=== PATIENT | female | born 1960 | race Caucasian/White ===

== ENCOUNTER 2021-12-08 15:37 | Outpatient (REF) | payer MEDICAID, SELFPAY ==
--- NOTE | 2021-12-08 15:00 | SKI_PTH ---
PATIENT: Laura Mar LOC: [facility] U#:[id number] AGE/SX: 61/F ROOM: RE12/08/[address]: Everardo Hathaway MD : 1960 BED: DIS: 12/08/2021 SPEC #: [id number] RECD: 12/09/21 12:01 STATUS: TITA RELeslie #: [id number] VANESSA: 12/08/21 15:[address]: Everardo Hathaway DEPT: Surgical Specimen RECD BY: Kena Fleming ENTERED: 12/09/21 12:02 SP TYPE: ROBERT HAYS DR: Libby Barahona Tissues: 1 - SKIN BIOPSY(SHAVE/PUNCH) Procedures: SKIN LEVEL 4 Comments: [id number]
== END 2021-12-08 15:38 | disposition home or self-care (01) ==
LOC: LBN 15:37
PROVIDERS: PCP Physician Assistant Medical; Visit Provider Otolaryngology
DX: C44.319 Basal cell carcinoma of skin of other parts of face (principal)
CPT/HCPCS: 88305

== ENCOUNTER 2022-02-08 10:11 | Outpatient (REF) | payer MEDICAID, SELFPAY ==
--- NOTE | 2022-02-08 09:45 | SKI_PTH ---
PATIENT: Laura Mar LOC: [facility] U#:[id number] AGE/SX: 61/F ROOM: RE02/08/[address]: Everardo Hathaway MD : 1960 BED: DIS: 02/08/2022 SPEC #: [id number] RECD: 02/08/22 16:00 STATUS: TITA REQ #: [id number] VANESSA: 02/08/22 09:[address]: Everardo Hathaway DEPT: Surgical Specimen RECD BY: Kena Fleming ENTERED: 02/08/22 16:01 SP TYPE: ROBERT HAYS DR: Libby Barahona Tissues: 1 - SKIN BIOPSY(SHAVE/PUNCH) Procedures: SKIN LEVEL 4 Comments: [id number]
== END 2022-02-08 10:12 | disposition home or self-care (01) ==
LOC: LBN 10:11
PROVIDERS: PCP Physician Assistant Medical; Visit Provider Otolaryngology
DX: C44.319 Basal cell carcinoma of skin of other parts of face (principal)
CPT/HCPCS: 88305

== ENCOUNTER → 2023-08-08 02:14 | Outpatient (CLI) | payer MEDICAID, SELFPAY ==
--- NOTE | 2023-08-08 | DI.RAD_ITS ---
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 TECHNIQUE: 2D digital imaging was performed. COMPARISON: CR ORTHO KNEE LEFT 4+VIEWS from 01/21/2018 FINDINGS: 3 views There is no evidence of fracture but there is a joint effusion, best seen on the lateral view. There is [id number] narrowing of the lateral compartment which has progressed since 2018. There also in creased size marginal osteophytes off the lateral compartment. Also marginal osteophytes off the med ial compartment but without significant narrowing of the medial compartment on the weight-bearing vie w. There are also significant degenerative changes in the patellofemoral compartment. No concerning osseous lesions. Calcific density seen behind the distal metaphysis of the femur now e vident, not previously seen on images of January 2018 and therefore does not represent a fabella but eit her represents a loose body or bony excrescence related to degenerative change. This is not separate d from the adjacent posterior femur at this level. IMPRESSION: As above. Significant progression of degenerative changes in the left knee when compared to 2018. DATA REPOSITORY: RADIATION DOSE DELIVERED:
== END ==
PROVIDERS: PCP Physician Assistant Medical; Visit Provider Physician Assistant Medical
DX: M17.12 Unilateral primary osteoarthritis, left knee (principal); M22.42 Chondromalacia patellae, left knee; M25.462 Effusion, left knee
CPT/HCPCS: 73562

== ENCOUNTER 2023-09-20 15:35 | Outpatient (CLI) | payer MEDICAID, SELFPAY ==
--- NOTE | 2023-09-20 11:00 | DI.RAD_ITS ---
Exam(s) XR STANDING ALIGNMENT EXAM: XR STANDING ALIGNMENT CLINICAL HISTORY: LEFT KNEE PAIN. TECHNIQUE: 2D digital imaging was performed. COMPARISON: CR ORTHO KNEE LEFT 4+VIEWS from 01/21/2018 CR XR KNEE LT 3V AP,LAT,KIMBER from 08/08/2023 FINDINGS: 3 views Again noted is moderate-advanced narrowing of the lateral compartment of the left knee. There is inc reased size of the marginal osteophyte off the outer aspect of the lateral tibial plateau when compar ed to 2018. The medial compartment of the left knee continues to exhibit normal height. No signific ant degenerative changes in the opposite-right knee. Mild narrowing of the hip joint spaces. Left a nkle unremarkable. Fusion hardware in the right ankle tibiotalar joint. IMPRESSION: Left knee findings as above with mild further degenerative progression from 2018. DATA REPOSITORY: RADIATION DOSE DELIVERED:
--- NOTE | 2023-09-20 11:00 | DI.RAD_ITS ---
Exam(s) XR KNEE LT 1V EXAM: XR KNEE LT 1V CLINICAL HISTORY: LEFT KNEE PAIN. TECHNIQUE: 2D digital imaging was performed. COMPARISON: CR XR KNEE LT 3V AP,LAT,KIMBER from 08/08/2023 FINDINGS: Single lateral view of the left knee. Significant degenerative changes evident including the patellofemoral compartment. There is a joint effusion noted. IMPRESSION: Significant degenerative changes DATA REPOSITORY: RADIATION DOSE DELIVERED:
== END 2023-09-20 15:36 | disposition home or self-care (01) ==
LOC: DIORS 15:35
PROVIDERS: PCP Physician Assistant Medical; Visit Provider Student in an Organized Health Care Education/Training Program
DX: M17.12 Unilateral primary osteoarthritis, left knee (principal)
CPT/HCPCS: 73560; 77073

== ENCOUNTER 2023-10-05 02:10 | Outpatient (CLI) | payer MEDICAID, SELFPAY ==
[2023-10-05 10:44] LABS: HCT 36.9 % (36.0-46.0); HGB 12.7 g/dL (11.2-15.7); MCH 33.2 pg (27.0-33.0); MCHC 34.4 % (32.0-36.0); MCV 96 fL (80-95); MPV 9.5 fL (8.0-11.0); Platelet Count 303 10^3/uL (130-400); RBC 3.83 10^6/uL (3.93-5.22); RDW 12.7 % (11.7-14.6); WBC 6.16 10^3/uL (4.4-10.8)
[2023-10-05 11:06] LABS: Anion Gap 10.7 mmol/L (3-11); BUN 23 mg/dL (7-18); CO2 26.3 mmol/L (21.0-32.0); CREATININE 0.7 mg/dL (0.55-1.02); Calcium 9.2 mg/dL (8.5-10.1); Chloride 103 mmol/L (98-107); Estimated GFR 98.34 (mL/min/1.73m2); Glucose 97 mg/dL (74-106); Potassium 4.3 mmol/L (3.5-5.1); Sodium 140 mmol/L (136-145)
== END 2023-10-05 02:11 | disposition home or self-care (01) ==
LOC: LBO 02:10
PROVIDERS: PCP Physician Assistant Medical; Visit Provider Student in an Organized Health Care Education/Training Program
DX: M17.12 Unilateral primary osteoarthritis, left knee (principal); Z01.818 Encounter for other preprocedural examination
CPT/HCPCS: 36415; 80048; 85027

== ENCOUNTER 2023-10-17 07:13 | Day surgery (SDC) | payer MEDICAID, SELFPAY ==
[2023-10-17] VITALS (14 sets, daily range): BP systolic 145–188; BP diastolic 79–124; PULSE 70–89; RESP 9–16; TEMP 36–36.6; O2SAT 95–99; BMI 26.5
--- NOTE | 2023-10-17 07:25 | PDOC.DSDIS_ITS ---
Date of service: 10/17/23 Time of Service: 07:25 Discharge Plan Disposition Patient Disposition: Home Condition: Good Discharge Details Reason For Visit: L TKR Attending Provider: Eduard Astorga Primary Care Provider: Libby Barahona Home Meds and New Rx's Prescriptions: New acetaminophen 500 mg tablet 1,000 mg PO TID Qty: 90 3RF aspirin 81 mg tablet,delayed release (DR/EC) 81 mg PO BID Qty: 60 0RF celecoxib 200 mg capsule 200 mg PO BID Qty: 60 0RF dexamethasone 4 mg tablet 4 mg PO DAILY Qty: 2 0RF oxycodone 5 mg tablet 5 mg PO Q4H MDD 6 tabs PRN (Reason: pain) Qty: 20 0RF Continued amitriptyline 25 mg tablet 25 mg PO QHS doxepin 50 mg capsule 50 mg PO QHS multivitamin Tablet 1 tab PO DAILY venlafaxine 150 mg capsule,extended release 24hr 150 mg PO DAILY venlafaxine 75 mg capsule,extended release 24hr 75 mg PO DAILY gabapentin 300 mg capsule 300 mg PO DAILY omeprazole 20 mg capsule,delayed release(DR/EC) 20 mg PO DAILY Discharge Instructions Additional Instructions: Total Knee Discharge Instructions Activity: The most important activity is to walk and to work on gentle motion (both flexion and extension). You should try to take short walks a few times a day. It is important that when resting you work on keeping the knee straight. Avoid putting a pillow behind the knee as this will encourage flexion. Work on range of motion exercises as provided by Physical Therapy. - Start outpatient physical therapy within 2 weeks. - You should wear the DINA hose on both legs for 2 weeks. You may remove these at night. You may also use any compression sock in place of the DINA hose. - Utilize [employer] to review exercises, see videos on exercises and obtain basic information pertaining to your surgery and your recovery. Dressing: Remove the Sanford wrap by 2 days after your surgery and put on the DINA stocking given to you from the hospital. Keep the surgical dressing (underneath the SANF[place] wrap) in place for at least one week. After the first week it may be removed and replaced with light gauze and tape or nothing. The wound and dressing may get wet after 3 days but avoid soaking the dressing or otherwise it will need to be changed. Many people prefer covering the dressing with cling wrap (saran wrap) to minimize it from getting soaked. If it gets wet, just pat dry. If it starts to peel off then it will need to be changed. Medications: - You should take Tylenol and anti-inflammatory Celebrex as your primary pain control medications. If the Celebrex is too expensive or not covered, please call the office for another alternative (Advil/Ibuprofen or Naproxen/Aleve) - You have been prescribed a stronger pain medication Oxycodone for breakthrough pain, take as needed as prescribed. - You will continue your omeprazole to help reduce stomach acid and reflux. - You will be taking Aspirin 81mg twice a day for DVT prevention unless instructed otherwise. - You have also been prescribed Decadron to take to control post-operative nausea and pain. You will start this tomorrow. - If you have constipation you should take Colace or Miralax (both [id number]). It takes most people 3-4 days to have a bowel movement. Follow-up: 2 weeks If you have any acute concerns or questions, please do not hesitate to contact the office at [phone]. You may contact Dr. Astorga with any questions after hours through the hospital at [phone] or on his cell phone at [phone]. Referrals: Eduard Astorga MD [ [facility] STAFF PHYSICIAN] - Equipment/Supplies: Walker Activity:: Activity as Tolerated Shower/Bathe:: 72 hours Diet:: As Tolerated DS: Diagnosis Discharge Diagnosis (1) Left knee DJD: Status: Chronic
[2023-10-17] MEDS: Gabapentin 300 MG CAP PO (07:49)
[2023-10-17] MEDS: Acetaminophen 500 MG TAB 1000 MG PO (07:49)
[2023-10-17] MEDS: Celecoxib 200 MG CAP 400 MG PO (07:50)
--- NOTE | 2023-10-17 07:50 | ANES.PREOP_ITS ---
General Info Date of Service Date Performed: 10/17/23 Height: 5 ft 3 in Weight: 68 kg Body Mass Index (BMI): 26.5 Surgical Procedure: Operation Date: 10/17/23 09:25 Proposed Procedure Side Surgeon p Knee Total Arthroplasty w/OrthAlign, Cementless CR Left Eduard Astorga MD Meds Allergies and Home Medications Allergies Allergy/AdvReac Type Severity Reaction Status Date / Time No Known Allergies Allergy Verified 10/17/23 07:39 Home Medication Medication Instructions Recorded amitriptyline 25 mg tablet 25 mg PO QHS 12/07/21 doxepin 50 mg capsule 50 mg PO QHS 12/07/21 multivitamin 1 tab PO DAILY 12/07/21 venlafaxine 150 mg 150 mg PO DAILY 12/07/21 capsule,extended release 24 hr venlafaxine 75 mg capsule,extended 75 mg PO DAILY 12/07/21 release 24 hr gabapentin 300 mg capsule 300 mg PO DAILY 07/31/23 omeprazole 20 mg capsule,delayed 20 mg PO DAILY 07/31/23 release acetaminophen 500 mg tablet 1,000 mg (2 x 500 mg) PO TID #90 10/17/23 tabs aspirin 81 mg tablet,delayed 81 mg PO BID #60 tabs 10/17/23 release celecoxib 200 mg capsule 200 mg PO BID #60 caps 10/17/23 dexamethasone 4 mg tablet 4 mg PO DAILY #2 tabs 10/17/23 oxycodone 5 mg tablet 5 mg PO Q4H PRN pain #20 tabs 10/17/23 Current Visit Medications: Current Medications Generic Name Dose Route Start Last Admin Trade Name Freq PRN Reason Stop Dose Admin Acetaminophen 1,000 mg 10/17/23 06:00 10/17/23 07:49 Acetaminophen 500 Mg Tab PO 10/17/23 16:00 1,000 mg PREOP CARITO Administration Acetaminophen 1,000 mg 10/17/23 07:24 Acetaminophen 500 Mg Tab PO 11/16/23 07:23 TID PRN PRN Analgesia Celecoxib 400 mg 10/17/23 06:00 10/17/23 07:50 Celecoxib 200 Mg Cap PO 10/17/23 16:00 400 mg PREOP CARITO Administration Docusate Sodium 100 mg 10/17/23 07:24 Docusate Sodium 100 Mg Cap PO 11/16/23 07:23 BID PRN PRN Constipation Gabapentin 300 mg 10/17/23 06:00 10/17/23 07:49 Gabapentin 300 Mg Cap PO 10/17/23 16:00 300 mg PREOP CARITO Administration Tranexamic Acid 1,000 mg/ 60 mls @ 360 mls/hr 10/17/23 06:00 Sodium Chloride IVPB 10/17/23 16:00 PREOP CARITO Ringer's Solution 1,000 mls @ 80 mls/hr 10/17/23 06:00 IV 10/17/23 23:59 INFUSION CARITO Cefazolin Sodium/Dextrose 2 gm in 50 mls @ 100 mls/hr 10/17/23 06:00 Ancef Duplex IVPB 10/17/23 23:59 PREOP CARITO IV Miscellaneous Supplies 1 each 10/17/23 06:00 Iv Access IV 10/17/23 23:59 DIRECTED CARITO Ondansetron HCl 4 mg 10/17/23 07:24 Ondansetron 4 Mg/2 Ml Vial IVP 11/16/23 07:23 Q6H PRN PRN Nausea Oxycodone HCl 0 mg 10/17/23 07:24 Oxycodone 5 Mg Tab PO 11/16/23 07:23 Q3H PRN PRN Pain Polyethylene Glycol 17 gm 10/17/23 07:24 Polyethylene Glycol 3350 17 Gm Packet PO 11/16/23 07:23 BID PRN PRN Constipation Sodium Chloride 0 ml 10/17/23 06:00 Normal Saline Flush 10 Ml Syr IV 10/17/23 23:59 PRN PRN Sodium Chloride 0 ml 10/17/23 06:00 Normal Saline 10 Ml Vial IJ 10/17/23 23:59 DIRECTED PRN Sterile Water 0 ml 10/17/23 06:00 Water,Injection,Sterile 10 Ml Vial IJ 10/17/23 23:59 DIRECTED PRN PFSH Active Problems Active Problems: Problem Status Onset Code Left knee DJD M17.12 Basal cell carcinoma, face C44.310 Medical History Medical History Sepsis Anxiety Skin lesion of face Disorder of skin and subcutaneous tissue Hidradenitis suppurativa Depressive disorder Pain in left knee Menopausal and postmenopausal disorder Gastroduodenitis Asthma Persistent insomnia Alcohol abuse Derangement of meniscus Tobacco user quit ~3 months Ludwigs angina Chronic pain syndrome Skin lesion Surgical History Surgical History Dental abscess From dental decay over 3 years ago Invasive surgery in [place] to remove teeth and had drains placed - scars on neck from drain placement H/O tubal ligation 1984 History of orthopedic surgery multiple surgeries on right ankle Tobacco Smoking/Tobacco Use Status: Former Tobacco Use Alcohol Alcohol Intake: current Alcohol intake frequency: a few times a month Alcohol type: beer Substance Use Substance use: Occasionally Substance use type: marijuana Vital Signs and Lab Results Vital Signs Most Recent Vital Signs in EMR: Most Recent Vital Signs Temp Pulse Resp BP Pulse Ox 36.2 C L 89 16 188/91 H 99 10/17/23 07:19 10/17/23 07:19 10/17/23 07:19 10/17/23 07:19 10/17/23 07:19 Lab Results Blood Type / Crossmatch: No Data to Display Complete Blood Count: White Blood Count 6.16 10^3/uL (4.4-10.8) 10/05/23 10:32 Red Blood Count 3.83 10^6/uL (3.93-5.22) L 10/05/23 10:32 Hemoglobin 12.7 g/dL (11.2-15.7) 10/05/23 10:32 Hematocrit 36.9 % (36.0-46.0) 10/05/23 10:32 Platelet Count 303 10^3/uL (130-400) 10/05/23 10:32 Complete Metabolic Panel: Sodium 140 mmol/L (136-145) 10/05/23 10:32 Potassium 4.3 mmol/L (3.5-5.1) 10/05/23 10:32 Chloride 103 mmol/L (98-107) 10/05/23 10:32 Carbon Dioxide 26.3 mmol/L (21.0-32.0) 10/05/23 10:32 BUN 23 mg/dL (7-18) H 10/05/23 10:32 Creatinine 0.7 mg/dL (0.55-1.02) 10/05/23 10:32 Est GFR (CKD-EPI 2020) 98.34 (mL/min/1.73m2) 10/05/23 10:32 Calcium 9.2 mg/dL (8.5-10.1) 10/05/23 10:32 Glucose 97 mg/dL (74-106) 10/05/23 10:32 Liver Function Panel: No Data to Display Coagulation Panel: No Data to Display Cardiac Panel: No Data to Display Arterial Blood Gas: No Data to Display Venous Blood Gas: No Data to Display Pancreas Panel: No Data to Display Thyroid Panel: No Data to Display Infectious Disease: No Data to Display Blood Cultures: No Data to Display Toxicology Panel: No Data to Display Anesthesia Assessment and Plan Anesthesia History Personal History: No History of Anesthesia Complications Family History: No Family History of Anesthesia Complications Exercise Tolerance Exercise Tolerance: Metabolic Equivalents>4 Pertinent Negatives Pertinent Negatives: No Symptoms of GERD Cardiac & Pulmonary Exam Cardiac Exam: Normal S1/S2 Heart Sounds Pulmonary Exam: Clear Bilateral Breath Sounds Implantable Cardiac Device Does patient have a Pacemaker or an ICD?: No Airway Exam Known Difficult Airway: No Mallampati Class: 2 Mouth Opening: Normal (> 3cm) Thyromental Distance: Greater than 3 cm Neck Range of Motion: Full ROM Neck Circumference: Normal Teeth Condition: Normal Dentition ASA Classification ASA Score: ASA 2 Emergency Case?: No NPO Status NPO Status: NPO Clears >2 hours, Solids >8 hours Anesthesia Plan Resuscitation Status: Full Code Anesthesia Technique: Spinal Anesthesia Airway Planned: Natural Airway Monitors Used: Standard Monitors
[2023-10-17] MEDS: Lactated Ringers 1,000 ML 80 ML IV (08:04)
--- NOTE | 2023-10-17 08:42 | W.ANESNERVE ---
Nerve Block Single Injection Procedure Date and Time Date Performed: 10/17/23 Procedure Start: 08:26 Location Where Procedure Performed Procedure Location: Day Surgery Unit Reason Performed: Postoperative Analgesia Requesting Provider: Eduard Astorga Timeout Performed Timeout Performed: Yes Monitoring Used ECG, Blood Pressure, SpO2, ETCO2 and See EMR for corresponding vital signs Sterility Sterility: Hand Hygiene, Surgical Cap, Surgical Mask, Sterile Gloves, Eye Protection and Chlorhexidine Sedation Given During Procedure Sedation Given (Indicate Dose Given): Versed IV Dose:: 3mg IVP Patient Mental Status Patient Mental Status: Sedate with meaningful communication Nerve Block 1st Nerve Block: Laterality: Left Block Type: Adductor Canal Ultrasound Image Saved?: Yes Needle / Catheter Used: 100mm SonoPlex II Local Anesthetic Bolus (Indicate Dose Given): Lidocaine used for local infiltration of skin and Ropivacaine 0.5% Dose:: 0.5%/20cc (100mg) Additives (Indicate Dose Given): Epinephrine to make 1:200,000 (5mcg/ml) Dose:: 100mcg (1:200,00) and Decadron Dose:: 10mg PF Ultrasound: Sterile probe cover and gel used Nerve Stimulator: Not Used Paresthesia: None Procedure Tolerated: No Complications and Patient tolerated well Procedure Outcome: Successful Performed By: Ji Araujo
[2023-10-17] MEDS: ceFAZolin 2 GM/50 ML BAG IVPB (08:48)
--- NOTE | 2023-10-17 10:14 | ROE_ITS ---
Date of service: 10/17/23 Time of Service: 09:05 Operative Note Operative Note DATE OF PROCEDURE: 10/17/23 PRE-OP DIAGNOSIS: Left Knee Osteoarthritis with Valgus Deformity POST-OP DIAGNOSIS: same PROCEDURE: Left Total Knee Replacement with Intraoperative Navigation SURGEON: Eduard Astorga CARDIAC CATH LAB TECHNOLOGIST: Maureen Weiner ANESTHESIA TYPE: Spinal Refer to Anesthesia Record ESTIMATED BLOOD LOSS: 100 PATHOLOGY: none sent TOURNIQUET TIME: 0 COMPLICATIONS: None Patient was transported to: PACU Patient's condition: stable Implants: 1. Depuy Attune Cementless Cruciate Retaining Femoral Component, Size 5 2. Depuy Attune Cementless Fixed Bearing Tibial Component, Size 5 3. Depuy Attune 5x7 CR/FB Poly 4. Depuy Attune Patellar Component, Size 35 Indications: I have seen Laura in clinic for symptoms of LEFT knee arthritis, confirmed with radiographic findings. Laura has exhausted nonoperative methods and was having significant limitations in daily function and desired better function and less pain. I discussed the technical details of a knee replacement. I explained the risks of the procedure to include, but not limited to, bleeding, infection, pain, stiffness, fracture, damage to nerves and vessels, damage to muscles and tendons, loosening, need for repeat procedure, blood clot and cardiopulmonary demise. Despite these risks, she elected to proceed. Findings: There was significant signs of arthritis throughout the knee involving all 3 compartments but worse on the lateral side. Procedure Description: Laura was greeted in the preoperative holding area where the correct side was identified and marked. The consent was reviewed with the patient and signed. The history and physical was updated. All questions were answered. Preoperativ e mediacations were administered: Acetaminophen 1000mg, Celebrex 400mg, and Gabapentin 300mg. An adductor canal block was then administered by the anesthesia team in the DSU. Laura was taken back to the operating room. A spinal anesthestic was then administered. The patient was placed into the supine position on the operating room table. A nonsterile tourniquet was placed high onto the leg. Posts were placed for positioning during the procedure. All bony prominences were well padded. Prophylactic antibiotics in the form of Cefazolin were administered. 1g of Tranxemic Acid was given intravenously within 30 minutes of incision. The left leg was then prepped with Chloraprep and draped in a standard fashion with impervious stockinette. A second prep with Chloraprep was performed prior to application of Iodine impregnated skin protection. A timeout to confirm correct identity, side and site, procedure, allergies, anesthesia, and medical concerns was performed. With the knee in some flexion, a midline incision was made overlying the knee. Full thickness skin flaps were raised once the extensor mechanism was encountered. These were raised medially and laterally. Any bleeding was controlled with electrocautery. Once the extensor mechanism was fully exposed, a medial parapatellar arthrotomy was performed in a flexed position. All bleeding from the arthrotomy and the geniculate arteries was coagulated. A medial subperiosteal peel was performed with electrocautery to the midcoronal plane. The fat pad was removed while keeping the patellar tendon protected. The anterior distal femur synovium was removed for later visualization. The ACL and PCL were resected and the anterior horn of the lateral meniscus was transected. The knee was then flexed with the patella everted. Large osteophytes from the tibia were removed. Large osteophytes from the femur were removed. A single starting pin was then placed 1cm anterior to the PCL insertion and the notch in the direction of the femoral head. The OrthoAlign device was applied over the pin. It was oriented to be in line with the epicondylar axis and the trochlear groove. It was then pinned into place. The navigation computer was then turned on and calibrated. The distal femur cut was set at 0 degrees varus and 3.5 degrees flexion. The distal femur cutting guide then was positioned for a 9mm cut. The distal femur was cut with an oscillating saw while protecting the soft tissues. The tibia was then addressed. The OrthoAlign device was placed over the tibial tubercle and medial tibia and secured into position. Once again, OrthoAlign was calibrated and then set for a 1.5 degree varus cut and 5.5 degrees of posterior slope. With this locked into position, the cut thickness stylus was used to assess cut thickness. The lateral side, most involved side, was set for a 6mm cut, which corresponded to 9mm medially. This was then held in position and pinned into place with 2 additional pins and a cross pin for stability. The medial and lateral collateral ligaments were protected and the cut was performed. With this completed, it was assessed and noted to be of appropriate dimensions. The guide and OrthoAlign was removed. A spacer block was inserted and the knee was brought into extension to ensure enough space was present. . The Orthoalign gap balancing device was then placed in extension. This was used to ensure that the ligaments were properly balanced with up to 2 to 3 mm laxity laterally compared medially. The extension gap was measured as 18mm. The knee was then brought into 90 degrees of flexion and the ligament temporary administrative assistant was once again placed. Under the same amount of force the flexion gap was measured. The Attune specific jig was placed and the flexion gap was made to match the extension gap. The femur was then sized as a size 5. The 4-in-1 cutting guide was the placed. An lizy wing was used to confirm appropriate position of the anterior cut to a void notching. This cutting guide was ensured to be flush on the cut surface and then pinned into place with headed pins. While protecting the soft tissues, quad tendon, and collateral ligaments, the anterior and posterior cuts were performed with a saw. The central two pins were removed and the posterior and anterior chamfers were cut next. The notch-cutting guide was placed. This was pinned to lateralize the femoral component as much as possible while keeping it flush on the cut surface. This was then pinned into position. A saw was used to make the notch cut. A rasp smoothed the cut surfaces. The medial and lateral menisci were removed. A trial femoral component was then inserted, impacted down to the cut surfaces, and the lug holes were drilled. A provisional trial tibial component was placed and the knee was brought through range of motion. The polyethylene was trialed until there was good flexion and extension with excellent stability to the medial and lateral collaterals. The patella was tracking without thumbs. A size 7mm polyethylene component provided the best range of motion and stability with less than 2mm gapping with medial and lateral stress and full extension without significant hyperextension. The tibial cut surface was fully exposed. The tibia was then sized as a 5. The tibia had been previously marked during trialing to correspond to the center of the tibial component to help with rotation. The trial was aligned to this maureen, approximately rotated to the medial 1/3rd of the tibial tubercle. The trial was pinned into place. The tibia was prepared with a reamer and a keel punch and lug holes. The knee was then brought into extension and the patella was measured as 26mm. Using the patellar clamp and cut guide, this was resected to a flat surface with at least 13mm of thickness remaining. The size 35 patella fit the best. This was oriented and then clamped into position. The lugs were drilled. The trial components were removed. The final components were opened on the back table. The periosteal and capsular tissues, especially posteriorly, around the knee were then systematically injected with a periarticular cocktail consisting of 246mg of Ropivacaine, 0.5mg of Epinephrine, 0.08mg of Clonidine, and 30mg of Ketorolac, diluted to 100cc. On the back table, with the implants opened, the cement was mixed. One batch of high viscosity cement was prepared with vacuum assistance. After the cement was ready a small amount was placed on the cut surface of the patella and the patellar button was clamped into position and held. While the cement was hardening, the cementless knee components were placed. Starting with the tibial component, the tibia was subluxed anteriorly and the lug holes of the component were lined up. The tibia was then impacted with an impactor and mallet until the tibial component was in contact with the tibia. Then, the femoral component was inserted. The lug holes were aligned and the component was impacted into position. The final polyethylene component was inserted. The knee was irrigated with Irrisept Chlorhexadine solution. This was allowed to sit in the knee for 3 minutes and then it was thoroughly irrigated out with saline. After the cement had finally cured, approximately 15min, the clamp was removed from the patella and the knee was taken through range of motion. The patella was tracking with a no-thumbs technique. The capsule was then reapproximated with a No. 1 Vicryl at multiple locations. The capsule was finally closed with a No. 2 Stratafix, barbed suture. Deep tissues were then reapproximated with 0 Vicryl and 2-0 Vicryl. The skin was closed with a running 3-0 Monocryl in a subcuticular fashion. This was reinforced with skin glue. A Mepilex silver dressing was applied along with a [id number] ROOSEVELT wrap. A CryoCuff was applied. Laura was transferred to the hospital bed without difficulty an suffering no apparent complication. Laura has a good prognosis. Physical therapy will start today and without restrictions, weight-bearing as tolerated. Aspirin 81mg BID will be used for DVT prophylaxis.
[2023-10-17] MEDS: Normal Saline 10 ML VIAL IJ (10:51)
[2023-10-17] MEDS: HYDROmorphone 2 MG/ML SYR IVP ×3 (10:51→11:26)
--- NOTE | 2023-10-17 12:19 | W.ANESPOSTOP ---
Postoperative Evaluation Date, Time and Location Date Performed: 10/17/23 Time Performed: 12:20 Patient Location: Day Surgery Unit Vital Signs Most Recent Imported Vital Signs: Most Recent Vital Signs Temp Pulse Resp BP Pulse Ox 36.2 C L 84 16 177/93 H 95 10/17/23 11:53 10/17/23 11:53 10/17/23 11:53 10/17/23 12:00 10/17/23 11:53 Pain Score Most Recent Pain Score: Most Recent Pain Score Pain Level 9 10/17/23 11:53 Assessment Mental Status: Awake (Alert & Oriented to Patient Baseline) Airway and Respiratory Function: Patent airway with normal (patient baseline) respiratory exam Cardiovascular Function: Hemodynamically Stable Hydration Status: Adequately Hydrated Nausea & Vomiting: No Nausea or Vomiting Pain: Pain is tolerable per patient Peripheral Nerve Block: Patient did not receive a nerve block
[2023-10-17] MEDS: Tranexamic Acid 650 MG TAB 1300 MG PO (12:44)
[2023-10-17] MEDS: oxyCODONE 5 MG TAB PO (12:44)
--- NOTE | 2023-10-17 13:19 | PT.INIE ---
PT Notes Visit Reasons: L TKR Physical Therapy Day Surgery Initial Evaluation Date: 10/17/2023 Referring Doctor: JORGE Holland PT Orders: PT CONSULT: S/P Ortho Surgery Precautions: WBAT on the L LE with AD. Patient Profile/Admitting Diagnosis: Patient is a 63-year-old female patient with degenerative joint disease of the L knee and is S/P L total knee arthroplasty on postoperative day 0. PMHX: Medical History (Updated 10/05/23 @ 10:08 by Rosario Quiroga) Sepsis Anxiety Skin lesion of face Disorder of skin and subcutaneous tissue Hidradenitis suppurativa Depressive disorder Pain in left knee Menopausal and postmenopausal disorder Gastroduodenitis Asthma Persistent insomnia Alcohol abuse Derangement of meniscus Tobacco user quit ~3 monthsLudwigs angina Chronic pain syndrome Skin lesion Surgical History (Updated 10/05/23 @ 10:08 by Rosario Quiroga) Dental abscess From dental decay over 3 years ago Invasive surgery in [place] to remove teeth and had drains placed - scars on neck from drain placement H/O tubal ligation 1984 History of orthopedic surgery multiple surgeries on right ankle Social History/Home Situation: Lives with son in a private home with no steps to enter. Independent with all aspects of ADLs prior to surgery although has had increasing difficulty with mobility ADL performance because of worsening pain on the left knee. Friend Brisa will be staying with patient for couple of days to help with her recovery. Equipment Owned/DME: None Subjective: Reported 6?7/10 pain on the left knee at rest which diminished to 2?3/10 with ambulation activity. Denied headache, chest pain, and lightheadedness throughout session. Objective: General Observation: ROOSEVELT wraps to left LE. Cryo/Cuff to left knee. TEDS to right leg and foot Mental Status: A&O x 4 Pain: As above ROM: Right Lower Extremity: Hip flexion WFL. Hip abduction WFL. Knee flexion 0 to 90 degrees. Knee extension 90 to 0 degrees. Ankle dorsiflexion WFL. Ankle plantarflexion WFL. Left Lower Extremity: Hip flexion WFL. Hip abduction WFL. Knee flexion WFL. Ankle dorsiflexion to neutral only. Ankle plantarflexion WFL. Strength: Right Lower Extremity: Hip flexors 5/5. Hip abductors 5/5. Knee flexors 5/5. Knee extensors 5/5. Ankle dorsiflexors 3-/5. Ankle plantarflexors 4-/5. Left Lower Extremity:Hip flexors 4/5. Hip abductors 4/5. Knee flexors 3-/5. Knee extensors 4/5. Ankle dorsiflexors 5/5. Ankle plantarflexors 5/5. Sensation: Intact as to pain and light pressure in BLE Bed Mobility/Transfers: Minimal cueing provided for use of B hands as needed for support, movement sequence, AD management, and posture to reduce fall risk and minimize pain report Sit to stand contact-guard assist with FWW Stand to sit standby assist with FWW Bed to chair standby assist with FWW Gait: Facilitated safe and correct performance of level surface ambulation covering a distance of 150 feet using front wheeled walker with standby assist and minimal cueing provided for movement sequence, AD management, and posture to reduce fall risk and minimize pain report. Balance: Static Sitting: Normal Dynamic Sitting: Normal Static Standing: Fair Dynamic Standing: Fair Special Tests: Mobility Limitations Standardized Measure [facility] 6 clicks Basic Mobility Inpatient Short Form: Raw Score: 23 CMS Score: 11% deficit Informed Consent/Education: Patient instructed in purpose of PT consult. Packet containing TKA exercise protocol has been given to patient. Education and training on initial set of exercises that can be done at home have been completed with patient. Trained patient with correct performance of exercises below to maximize motor control, joint flexibility, soft tissue extensibility of the L knee musculature: Access Code: [email or web address] URL: [email or web address] Date: 10/17/2023 Prepared by: Kristina Alva Exercises - Supine Quad Set - 1 x daily - 7 x weekly - 1 sets - 10 reps - 5 hold - Supine Heel Slide - 1 x daily - 7 x weekly - 1 sets - 10 reps - 5 hold - Supine Ankle Pumps - 1 x daily - 7 x weekly - 1 sets - 10 reps - 5 hold - Small Range Straight Leg Raise - 1 x daily - 7 x weekly - 1 sets - 10 reps - 5 hold - Seated March - 1 x daily - 7 x weekly - 1 sets - 10 reps - 5 hold Assessment: Patient requires the use of front wheeled walker for mobility ADL performance to maximize independence and reduce fall risk. Patient presents with clinical signs and symptoms consistent with current/admitting diagnoses that have resulted to mobility limitations, gait instability, generalized weakness, and impairment of motor control as demonstrated by the following impairment level findings: 1. Decreased strength to left knee major muscle groups 2. Impaired standing balance 3. Limitation of joint range of motion in left knee Impairments are contributing to the following functional limitations: 1. Inability to safely ambulate without assistive device 2. Increase completion time for mobility ADL performance 3. Increased fall risk Patient is assessed as a 78605 moderate complexity based on the following: History: 63-year-old female with impairment level findings, functional limitations, and past medical history as indicated above Examination: Demonstrable impairment in strength, balance, and mobility level with underlying impairments and functional limitations as documented above Presentation: Evolving Decision Makin moderate complexity Goals: N/A. PT evaluation and 1-2 treatment sessions only for functional mobility training using recommended AD and for HEP instruction. Plan of Care/Treatment Plan: N/A. PT evaluation and 1-2 treatment session only for functional mobility training using recommended AD and for HEP instruction. DISCHARGE RECOMMENDATIONS: Home when medically cleared by orthopedic surgeon. Recommend outpatient PT services in order to optimize functional mobility outcomes and facilitate return to independent community ambulation without an assistive device. TREATMENT CODE/TIME: 9716 2 x 20 minutes for 1 unit, 9753 0 x 12 minutes for 1 unit (13:19-14:20). Thank you for the opportunity to participate in the care of this patient. Please sign an return this page within 30 days if you agree with the above POC. Thank you! Physician Signature Date [facility] Thank you for the opportunity to participate in the care of this patient. Kristina Alva PT, DPT, CLT [facility] [place], [place]
== END 2023-10-17 14:25 | disposition home or self-care (01) ==
PROVIDERS: PCP Physician Assistant Medical; Visit Provider Student in an Organized Health Care Education/Training Program
PROC: (CPT 27447; principal; 2023-10-17 09:15)
DX: M17.12 Unilateral primary osteoarthritis, left knee (principal); J45.909 Unspecified asthma, uncomplicated; Z79.899 Other long term (current) drug therapy; M21.062 Valgus deformity, not elsewhere classified, left knee
CPT/HCPCS: 27447; 20985; 76942; 97162; 97530; C1776; J0171; J0690; J1100; J1170; J2001; J2250; J2401; J2405; J2704

== ENCOUNTER 2023-11-01 14:49 | Outpatient (CLI) | payer MEDICAID, SELFPAY ==
--- NOTE | 2023-11-01 10:45 | DI.RAD_ITS ---
Exam(s) XR KNEE LT 1V XR STANDING ALIGNMENT EXAM: XR STANDING ALIGNMENT and XR knee LT 1 V CLINICAL HISTORY: 1ST POST OP S/P L TKA. TECHNIQUE: 2D digital imaging was performed. Five images were obtained. COMPARISON: CR XR STANDING ALIGNMENT from 09/20/2023 CR XR KNEE LT 1V from 09/20/2023 FINDINGS: BONES: The hips are well maintained. The right knee is unremarkable. There are stable postsurgical changes of a left total knee replacement. The orthopedic hardware appears in good position. No luce ncies are seen in or about the orthopedic hardware. There is mild persistent soft tissue swelling ar ound the knee. There is a right ankle arthrodesis. The left ankle is unremarkable.There is no signi ficant leg length discrepancy. SOFT TISSUE: Normal. IMPRESSION: Stable left total knee replacement. DATA REPOSITORY: RADIATION DOSE DELIVERED:
== END 2023-11-01 14:50 | disposition home or self-care (01) ==
LOC: DIORS 14:50
PROVIDERS: PCP Physician Assistant Medical; Visit Provider Physician Assistant
DX: Z96.652 Presence of left artificial knee joint (principal); Z47.1 Aftercare following joint replacement surgery
CPT/HCPCS: 73560; 77073

== ENCOUNTER 2024-07-14 11:50 | Emergency (ER) | payer SELFPAY ==
[2024-07-14] VITALS (32 sets, daily range): BP systolic 115–187; BP diastolic 78–131; PULSE 69–95; RESP 8–28; TEMP 37; O2SAT 96–100
--- NOTE | 2024-07-14 12:15 | RT.EKG_ITS ---
APPROVED REPORT Exam: Resting ECG Reason for Exam: Stroke Patient Location: E HR:81 bpm ECG Measurements Heart Rate 81 AXIS MA 162 P 71 QRSd 100 QRS 87 QT 410 T 87 QTc 477 Conclusion Sinus rhythm, rate 81 No interval abnormalities No STEMI Q wave lead III No priors available for comparison
[2024-07-14 12:40] LABS: Abs Immature Grans 0.02 10^3/uL (0.0-0.06); Absolute Basophil Count 0.08 10^3/uL (0.0-0.2); Absolute Eosinophil Count 0.16 10^3/uL (0.0-0.7); Absolute Lymphocyte Count 3.32 10^3/uL (1.2-3.4); Absolute Monocyte Count 0.55 10^3/uL (0.1-0.8); Absolute Neutrophil Count 5.61 10^3/uL (1.2-6.7); Basophils % 0.8 %; Eosinophils % 1.6 %; HCT 38.5 % (36.0-46.0); HGB 12.9 g/dL (11.2-15.7); Immature Grans % 0.2 %; Lymphocytes % 34.1 %; MCHC 33.5 % (32.0-36.0); MCV 96 fL (80-95); Monocytes % 5.6 %; Neutrophils % 57.7 %; Platelet Count 352 10^3/uL (130-400); RBC 4.03 10^6/uL (3.93-5.22); RDW 14.2 % (11.7-14.6); RDW-SD 49.7 fL; WBC 9.74 10^3/uL (4.4-10.8)
[2024-07-14 12:51] LABS: INR 1.1 (0.9-1.1); Prothrombin Time 10.8 sec (9.1-11.1)
[2024-07-14] MEDS: Omnipaque 350 MG/ML 100 ML BTL IJ (13:03)
[2024-07-14] MEDS: Normal Saline - Diluent 50 ML VIAL IJ (13:04)
--- NOTE | 2024-07-14 13:15 | DI.CT_ITS ---
Exam(s) CT BRAIN NECK CTA EXAM: CT BRAIN NECK CTA CLINICAL HISTORY: 1 week ago speech changes, eval stroke. TECHNIQUE: Imaging Protocol: Axial CT angiography was performed with multi-slice acquisition and mu lti-planar and/or 3D reconstructions. CONTRAST MATERIAL: Intravenous: Omnipaque 350 contrast volume:70 mL COMPARISON: No exams were available for comparison FINDINGS: CT Head W/O and W: Ventricles and Extra axial spaces: Normal in size and morphology for the patient's age. Hemorrhage: None. Cerebral parenchyma: Normal. Midline shift: None. Brainstem/Cerebellum: Normal. Calvarium: Normal. Visualized Paranasal sinuses/Mastoids: Clear. Soft Tissues: Unremarkable. Enhancement: Unremarkable. CTA Neck W: Common Carotid: Right: No dissection, occlusion or significant stenosis. Left: No dissection, occlusion or significant stenosis. External Carotid: Right: No occlusion or significant stenosis. Left: No occlusion or significant stenosis. Internal Carotid: Right: No dissection, occlusion or significant stenosis. Left: No dissection, occlusion or significant stenosis. Vertebral Artery: Right: No dissection, occlusion or significant stenosis. Left: No dissection, occlusion or significant stenosis. Lung Apices: There is scarring in the right lung apex. Bones: Within normal limits for the patient's age. Soft Tissues: Normal. Thyroid gland: Unremarkable. CTA Brain W: Internal Carotid Arteries: Mild atherosclerotic calcification is present. No aneurysm, occlusion or significant stenosis is present. Anterior Cerebral Arteries: Right: No aneurysm, occlusion or significant stenosis. Left: No aneurysm, occlusion or significant stenosis. Middle Cerebral Arteries: Right: No aneurysm, occlusion or significant stenosis. Left: No aneurysm, occlusion or significant stenosis. Posterior Cerebral Arteries: Right: No aneurysm, occlusion or significant stenosis. Left: No aneurysm, occlusion or significant stenosis. Vertebral Arteries: Right: No aneurysm, occlusion or significant stenosis. Left: No aneurysm, occlusion or significant stenosis. Basilar Artery: No aneurysm, occlusion or significant stenosis. IMPRESSION: 1. No large vessel occlusion or significant stenosis on the CT angiography of the head. 2. No acute intracranial process. 3. No occlusion or significant stenosis on the CT angiography of the neck. RADIATION DOSE DELIVERED: 2,108.49mGy.cm Total DLP DATA REPOSITORY: All CT scans at this facility are submitted to the National Radiology Data Registry (NRDR) Dose Index Registry (DIR) with the [employer] (A[employer]). RADIATION OPTIMIZATION: All CT scans at this facility use at least one of these dose optimization te chniques: automated exposure control; mA and/or kV adjustment per patient size (includes targeted exa ms where dose is matched to clinical indication); or iterative reconstruction.
[2024-07-14 13:20] LABS: ALT 24 U/L (14-59); AST 21 U/L (15-37); Albumin 4.2 g/dL (3.4-5.0); Alkaline Phosphatase 107 U/L (46-116); Anion Gap 7.6 mmol/L (3-11); BUN 9 mg/dL (7-18); Bilirubin, Total 0.26 mg/dL (0.2-1.0); CO2 31.4 mmol/L (21.0-32.0); Calcium 9.1 mg/dL (8.5-10.1); Chloride 100 mmol/L (98-107); Glucose 81 mg/dL (74-106); Magnesium 1.8 mg/dL (1.8-2.4); Sodium 139 mmol/L (136-145); Total Protein 7.6 g/dL (6.4-8.2); Troponin I 4 ng/L (<or=51)
[2024-07-14] MEDS: Potassium Chloride 20 MEQ TABCR 40 MEQ PO (13:36)
--- NOTE | 2024-07-14 13:40 | ED.GENADUL_ITS ---
Discharge Plan Disposition Patient Disposition: Home Condition: Stable Discharge Details Clinical Impression: Brain TIA Primary Care Provider: Libby Barahona ED Provider: Erin Merritt Home Meds and New Rx's Prescriptions: New aspirin 81 mg capsule 81 mg PO DAILY Qty: 30 0RF clopidogrel [Plavix] 75 mg tablet 75 mg PO DAILY Qty: 30 0RF No Action amitriptyline 25 mg tablet 25 mg PO QHS doxepin 50 mg capsule 50 mg PO QHS multivitamin Tablet 1 tab PO DAILY venlafaxine 150 mg capsule,extended release 24hr 150 mg PO DAILY venlafaxine 75 mg capsule,extended release 24hr 75 mg PO DAILY gabapentin 300 mg capsule 300 mg PO DAILY omeprazole 20 mg capsule,delayed release(DR/EC) 20 mg PO DAILY varenicline 1 mg tablet 1 mg PO BID Patient Comments: TAKE 1/2 TABLET BY MOUTH DAYS 1-3, THEN 1/2 TABLET BY MOUTH TWO TIMES A DAY DAYS 4-7 THEN TAKE ONE TABLET BY MOUTH TWICE A DAY FOR 12 WEEKS gabapentin 100 mg capsule 100 mg PO DAILY Patient Comments: TAKE ONE CAPSULE BY MOUTH EVERY DAY tramadol 50 mg tablet 100 mg PO QID PRN Patient Comments: TAKE TWO TABLETS BY MOUTH FOUR TIMES A DAY FOR 7 DAYS celecoxib 200 mg capsule 200 mg PO DAILY Discharge Instructions Instructions: Lowering the risk of having a stroke Additional Instructions: You were seen in the emergency department for evaluation of speech changes and dizziness concerning for stroke. In our department you had a full physical examination performed, had a CT scan that was normal, and had an MRI that showed a very small change in the right/front of your brain, which is not clear if it is the cause of your symptoms or just an incidental finding. You met with our neurology team, and they recommended a full stroke workup be done in the hospital. At this time you have elected to complete this workup as an outpatient which is not inappropriate given the length of time you have had the symptoms. This includes an ultrasound of your heart, which has been ordered. You need to call the number on your order form tomorrow to schedule this examination. Additionally, I have started you on 2 new medications, aspirin and Plavix. These are taken daily to prevent blood clots from forming as easily. You are at a very slightly increased risk of bleeding while on these medications. You have some laboratory studies which you are primary care provider needs to follow-up on, including your lipid panel and your hemoglobin A1c, a measure for diabetes. They may choose to put you on additional medications depending on the results of the studies. If you have any worsening of your symptoms, if you have another fall, or have any other concerning symptoms you need to return to the emergency department at that time you would be admitted to have this workup completed. You need to call your primary care provider tomorrow to schedule an appointment to be reevaluated. Thank you for allowing us to be part of your care. HPI General Mode of arrival: ambulatory . Date/Time Provider Initiated Documentation: 07/14/24 11:57 . Limitations to Documentation: no limitations . Information obtained by: patient and old records reviewed . HPI Narrative: HPI: This is a 64-year-old female patient without significant past medical history who is presenting for evaluation of speech changes concerning for stroke. The patient reports that she first noted the speech changes occurred suddenly approximately 9 days ago. She states that at that time she was concerned for stroke because she was stuttering and having difficulty with word finding. She was with her boyfriend at the time, states that the relationship is not good and that she delayed seeking care because her boyfriend thought that she was likely faking or exaggerating her symptoms. She reports that she did not have any falls or injuries at the time of onset of symptoms, and did not have any associated vision changes, headaches, weakness, or numbness. However, she has noted a dizzy sensation, described as both lightheadedness and vertiginous feeling, which has made her feel unsteady on her feet. She did sustain a fall yesterday due to that dizziness, scraped her right knee, states that she is not sure if she hit her head. She does not take blood thinning medications and has no personal history of stroke. She called her doctor's office this morning, and they recommended that she be seen in the emergency department for evaluation of potential stroke. Exam: Gen: awake and alert, in no apparent distress. Appears well nourished. HEENT: PERRL, EOMs full and without nystagmus. External ears and nose normal, mucous membranes moist. Neck: Supple, full range of motion, no observable masses Lungs: No increased work of breathing, lung sounds clear and equal bilaterally without wheezes, rhonchi, or rales. CV: Heart with regular rate and rhythm, no murmurs auscultated. Strong and symmetrical radial pulses. Abdomen: Soft, nondistended, non-tended to palpation. No rigidity, rebound tenderness, or guarding. MSK: No joint swelling, no redness. Full ROM without limitation, no external traumatic findings. Skin: No rashes or lesions to visualized skin. Normal color, warm, and dry. Neuro: Cranial nerves II-XII intact and symmetrical bilaterally. The patient does have stuttering and difficulty with word finding. 5/5 strength in all muscle groups x4 extremities. No pronator drift, visual smith preserved. No sensory deficits. Ambulates with steady gait, no ataxia. Psych: Appropriate for situation. MDM: This is a 64-year-old female patient presenting for evaluation of speech changes and dizziness. My differential includes but is not limited to CVA, intracranial hemorrhage, certainly considered intracranial mass. The patient's duration of symptoms is well outside the window for tPA or thrombectomy, and so a stroke alert was not called. I certainly considered injury subsequent to her fall yesterday, as well as metabolic and electrolyte derangements, kidney and liver injury, anemia, dehydration. The patient has not had seizure-like activity, has not had fever, headache, or neck stiffness to suggest meningitis. We will obtain a CTA head and neck to evaluate for evidence of LVO, CVA, or injury from her fall yesterday. I anticipate that this patient will likely require an MRI for further workup and management given the concerning nature of her symptoms. I will obtain an EKG and laboratory studies to include CBC, CMP, magnesium, troponin, PT/INR. ED Course: I independently interpreted the laboratory studies, which show no significant leukocytosis, anemia, or thrombocytopenia. The chemistry panel is without evidence of electrolyte abnormality other than a low potassium to 3.0 which was repleted orally, no kidney dysfunction, or liver injury. Troponin is low at 4, and in the absence of chest pain and without ischemic changes on her EKG I do not see an indication for trending. INR 1.1. CTA of the head and neck was reviewed by myself, showing no evidence of intracranial hemorrhage, vessel abnormality or other acute abnormality to account for her symptoms. I did obtain an MRI without contrast of her brain and placed a teleneurology consult. Teleneurology noted her NIH score to be 0, MRI had a subtle finding of susceptibility artifact in the peripheral right frontal/parietal region per our radiologist, without evidence of acute infarct or active hemorrhage. Unclear significance of this finding. This was shared with the patient and the neurologist. Neurology is recommending completion of a stroke workup to include echo, lipid panel and A1c (ordered), loading of Plavix and aspirin which was performed in our emergency department. They did recommend admission for telemetry monitoring, PT, OT, and speech therapy. The patient states that she does not want to be admitted to the hospital, and feels strongly that she does not stay overnight. I do not feel it is unreasonable for this patient to complete some of this workup in the outpatient environment, given the extended duration since her symptom onset. I did order an outpatient echo as we were unable to obtain that imaging study in the emergency department at that time of day. I provided her with a prescription for Plavix and aspirin, and she is to call her primary care provider tomorrow to have them follow-up on the results of her lipid panel to determine if she meets criteria for statin initiation. Additionally, we had an extended conversation regarding return precautions given my inability to get a PT/[employer] evaluation in the emergency department prior to discharge. At this time, the patient has had a full medical evaluation and is safe for discharge to home. They are hemodynamically stable, ambulatory, and tolerating PO. They are understanding of the follow-up plan and return precautions. They left our facility without incident. Erin Merritt MD Related Data Home Medications ?Medication ?Instructions ?Recorded ?Confirmed amitriptyline 25 mg tablet 25 mg PO QHS 12/07/21 07/14/24 doxepin 50 mg capsule 50 mg PO QHS 12/07/21 07/14/24 multivitamin 1 tab PO DAILY 12/07/21 07/14/24 venlafaxine 150 mg 150 mg PO DAILY 12/07/21 07/14/24 capsule,extended release 24 hr venlafaxine 75 mg capsule,extended 75 mg PO DAILY 12/07/21 07/14/24 release 24 hr gabapentin 300 mg capsule 300 mg PO DAILY 07/31/23 07/14/24 omeprazole 20 mg capsule,delayed 20 mg PO DAILY 07/31/23 07/14/24 release aspirin 81 mg capsule 81 mg PO DAILY #30 caps 07/14/24 celecoxib 200 mg capsule 200 mg PO DAILY 07/14/24 07/14/24 clopidogrel 75 mg tablet (Plavix) 75 mg PO DAILY #30 tabs 07/14/24 gabapentin 100 mg capsule 100 mg PO DAILY 07/14/24 07/14/24 tramadol 50 mg tablet 100 mg PO QID PRN 07/14/24 07/14/24 varenicline 1 mg tablet 1 mg PO BID 07/14/24 07/14/24 Previous Rx's ?Medication ?Instructions ?Recorded aspirin 81 mg capsule 81 mg PO DAILY #30 caps 07/14/24 clopidogrel 75 mg tablet (Plavix) 75 mg PO DAILY #30 tabs 07/14/24 Allergies Allergy/AdvReac Type Severity Reaction Status Date / Time No Known Allergies Allergy Verified 07/14/24 11:57 General Stated Complaint: CVA/TIA SHAINA: 3 Course Vital Signs Vital signs: Vital Signs Temperature 37.0 C 07/14/24 11:53 Pulse 95 H 07/14/24 11:53 Respiratory Rate 15 07/14/24 11:53 Blood Pressure 176/94 H 07/14/24 11:53 Pulse Oximetry 98 07/14/24 11:53 Temperature 37.0 C 07/14/24 11:53 Pulse 83 07/14/24 13:16 Pulse 80 07/14/24 13:20 Respiratory Rate 13 07/14/24 13:20 Respiratory Effort Normal, Non-Labored 07/14/24 12:35 Respiratory Depth Normal 07/14/24 12:35 Respiratory Pattern Normal 07/14/24 12:35 Blood Pressure 168/88 H 07/14/24 13:16 Blood Pressure Mean 114 07/14/24 13:16 Blood Pressure Position Sitting 07/14/24 11:53 Pulse Oximetry 99 07/14/24 13:20 Oxygen Delivery Method Room Air 07/14/24 11:53 Oxygen Flow Rate 0 07/14/24 11:53 Lab/Test Results Lab/Test Results: Laboratory Tests Range/Units 07/14/24 07/14/24 07/14/24 12:30 13:17 15:17 WBC (4.4-10.8) 10^3/uL 9.74 RBC (3.93-5.22) 10^6/uL 4.03 Hgb (11.2-15.7) g/dL 12.9 Hct (36.0-46.0) % 38.5 MCV (80-95) fL 96 H MCH (27.0-33.0) pg 32.0 MCHC (32.0-36.0) % 33.5 RDW (11.7-14.6) % 14.2 Plt Count (130-400) 10^3/uL 352 MPV (8.0-11.0) fL 9.0 Immature Gran % % 0.2 Neutrophils % % 57.7 Lymphocytes % % 34.1 Monocytes % % 5.6 Eosinophils % % 1.6 Basophils % % 0.8 Nucleated RBC % (0.0-0.3) % 0.0 Absolute Neutrophils (1.2-6.7) 10^3/uL 5.61 Absolute Lymphocytes (1.2-3.4) 10^3/uL 3.32 Absolute Monocytes (0.1-0.8) 10^3/uL 0.55 Absolute Eosinophils (0.0-0.7) 10^3/uL 0.16 Absolute Basophils (0.0-0.2) 10^3/uL 0.08 PT (9.1-11.1) sec 10.8 INR (0.9-1.1) 1.1 Sodium (136-145) mmol/L 139 Potassium (3.5-5.1) mmol/L 3.0 L Chloride (98-107) mmol/L 100 Carbon Dioxide (21.0-32.0) mmol/L 31.4 Anion Gap (3-11) mmol/L 7.6 BUN (7-18) mg/dL 9 Creatinine (0.55-1.02) mg/dL 1.0 Est GFR (CKD-EPI 2020) (mL/min/1.73m2) 63.70 Glucose (74-106) mg/dL 81 Calcium (8.5-10.1) mg/dL 9.1 Magnesium (1.8-2.4) mg/dL 1.8 Total Bilirubin (0.2-1.0) mg/dL 0.26 AST (15-37) U/L 21 ALT (14-59) U/L 24 Alkaline Phosphatase (46-116) U/L 107 Troponin I (<or=51) ng/L 4 Cancelled Cancelled Total Protein (6.4-8.2) g/dL 7.6 Albumin (3.4-5.0) g/dL 4.2 Medical Decision Making Quality:SDOH Health Related Social Needs: No Data to Display PFSH All Active Problems (Updated 07/14/24 @ 16:18 by Erin Merritt MD) Brain TIA (Acute) History of total left knee replacement (Acute 10/17/23) Basal cell carcinoma, face (Acute) removed by Dr. Hathaway Medical History (Updated 07/14/24 @ 16:18 by Erin Merritt MD) Sepsis Anxiety Skin lesion of face Disorder of skin and subcutaneous tissue Hidradenitis suppurativa Depressive disorder Pain in left knee Menopausal and postmenopausal disorder Gastroduodenitis Asthma Persistent insomnia Alcohol abuse Derangement of meniscus Tobacco user quit ~3 months [place]igs angina Chronic pain syndrome Skin lesion Surgical History (Updated 11/01/23 @ 10:55 by Tulio Key RN) Dental abscess From dental decay over 3 years ago Invasive surgery in [place] to remove teeth and had drains placed - scars on neck from drain placement H/O tubal ligation 1983 History of orthopedic surgery multiple surgeries on right ankle Family History Brother Diabetes Mother Diabetes Migraines Bladder cancer Father Migraines COPD (chronic obstructive pulmonary disease) Social History (Updated 10/05/23 @ 10:21 by Rosario Rodriguez) Smoking/Tobacco Use Status: Former Tobacco Use Quit Date: 07/20/23 Smoking risk assessment performed?: Yes Alcohol Intake: current Alcohol Intake frequency: a few times a month Alcohol type: beer Drug use: Occasionally Substance use type: marijuana Housing: house Do you feel safe at home: Yes Do you feel safe in your relationship?: Yes
[2024-07-14 13:46] LABS: Bilirubin Negative (Negative); Blood Trace-intact (Negative); Clarity Clear (Clear); Glucose Negative (Negative); Ketones Negative (Negative); Leukocyte Esterase Negative (Negative); Nitrite Negative (Negative); Specific Gravity <= 1.005 (1.005-1.025); Urobilinogen 0.2 mg/dL (Up to 0.2); pH 6.5 (5-8)
[2024-07-14 13:54] LABS: Bacteria Few HPF (Negative); C & S Indicated? No; Casts Negative LPF (Negative); Crystals Negative HPF (Negative); Epithelial Cells Few HPF (Negative); Mucus Negative (Negative); RBC 0-2 HPF (0-2); WBC 0-2 HPF (0-5)
--- NOTE | 2024-07-14 14:00 | DI.MRI_ITS ---
Exam(s) MR BRAIN WO EXAM: MR BRAIN WO CLINICAL HISTORY: expressive dyspasia and vertigo, eval CVA TECHNIQUE: Multiplanar multisequence MRI of the brain was performed. COMPARISON: CT CT BRAIN NECK CTA from 07/14/2024 FINDINGS: CEREBRAL PARENCHYMA: There is no evidence of acute intracranial hemorrhage, mass effect, or shift of midline structures. There are no extra-axial fluid collections. Ventricles are not enlarged or shifted. There is no significant focal signal abnormality in the cerebellar hemispheres nor within the renny, m idbrain, and thalami. There is no abnormal signal abnormality in the immediate periventricular white matter. However, there is a subtle focus of susceptibility artifact on SWI imaging in the peripheral right fr ontoparietal region measuring 4 mm, appearing bright on T2 images and not associated with restricted diffusion PITUITARY GLAND: No mass nor parasellar abnormality. No obvious abnormality in the cavernous sinuses. FLOW VOIDS: The expected flow void are noted. No evidence of obvious aneurysm nor obvious vascular ma lformation. PARANASAL SINUSES: The visualized paranasal sinuses appear unremarkable. Small amount of fluid evide nt in the inferior right mastoid air cells. Left mastoid air cells appear unremarkable. ORBITS: No obvious findings. IMPRESSION: Subtle finding in the peripheral right frontoparietal region exhibiting focal susceptibility artifact on SWI but without evidence of acute nor subacute hemorrhage at this level nor elsewhere in the brai n.. No obvious popcorn type cavernoma evident at this level on conventional sequences. Neurology consultation recommended Report called by myself to ER physician 07/14/2024 3:35 p.m. DATA REPOSITORY:
[2024-07-14] MEDS: Clopidogrel 300 MG TAB PO (16:19)
[2024-07-14] MEDS: Aspirin 325 MG TAB PO (16:19)
== END 2024-07-14 16:37 | disposition home or self-care (01) ==
PROVIDERS: Emergency Provider Emergency Medicine; PCP Physician Assistant Medical
DX: G45.8 Other transient cerebral ischemic attacks and related syndromes (principal); R47.01 Aphasia; R42 Dizziness and giddiness; Z79.82 Long term (current) use of aspirin; Z79.01 Long term (current) use of anticoagulants
CPT/HCPCS: 36415; 70496; 70498; 80053; 80061; 93005; 99285; 70551; 81003; 81015; 83036; 83735; 84484; 85025; 85610; 93010; J3490